=== PATIENT | female | born 1935 | race Caucasian/White ===

== ENCOUNTER 2017-01-09 09:58 | Outpatient (CLI) | payer MEDICARE | END 2017-01-09 23:59 | DX: I10 Essential (primary) hypertension (principal); Z79.899 Other long term (current) drug therapy; F32.9 Major depressive disorder, single episode, unspecified; R53.83 Other fatigue ==

== ENCOUNTER 2018-04-27 08:00 | Outpatient (CLI) | payer MEDICARE ==
[2018-04-27 12:08] LABS: BASOPHILS % (AUTO) 0.6 %; EOSINOPHILS # (AUTO) 0.1 10^3/uL (0.0-0.7); EOSINOPHILS % (AUTO) 1.1 %; HGB - HEMOGLOBIN 13.6 g/dL (12.0-16.0); LYMPHOCYTES # (AUTO) 2.6 10^3/uL (1.5-3.5); LYMPHOCYTES % (AUTO) 31.2 %; MEAN CORPUSCULAR HEMOGLOBIN 30.4 pg (27.0-31.0); MEAN CORPUSCULAR HGB CONC 33.5 g/dL (32.0-36.0); MEAN CORPUSCULAR VOLUME 90.9 fL (81.0-99.0); MEAN PLATELET VOLUME 7.7 fL (7.9-10.8); MONOCYTES # (AUTO) 0.4 10^3/uL (0.0-1.0); MONOCYTES % (AUTO) 5.3 %; NEUTROPHILS # (AUTO) 5.1 10^3/uL (1.5-6.6); NEUTROPHILS % (AUTO) 61.8 %; PLT - PLATELET COUNT 297 10^3/uL (130-450); RED BLOOD COUNT 4.46 10^6/uL (4.20-5.40); RED CELL DISTRIBUTION WIDTH 13.3 % (12.0-15.0); WHITE BLOOD COUNT 8.2 x10^3/uL (4.8-10.8)
[2018-04-27 12:30] LABS: ALBUMIN 4.2 g/dL (3.2-5.5); ALBUMIN/GLOBULIN RATIO 1.5 (1.0-2.2); ALKALINE PHOSPHATASE 78 IU/L (42-121); ALT ALANINE AMINOTRANSFERASE 20 IU/L (10-60); AST ASPARTATE AMINOTRANSFERASE 17 IU/L (10-42); BILIRUBIN,TOTAL 0.7 mg/dL (0.2-1.0); BUN - BLOOD UREA NITROGEN 20 mg/dL (6-20); CALCIUM 9.3 mg/dL (8.5-10.3); CARBON DIOXIDE - CO2 29 mmol/L (21-32); CHLORIDE 102 mmol/L (101-111); CHOL/HDL RATIO 5.4 (<4.4); CHOLESTEROL 182 mg/dL; GFR - MDRD 53 (>89); GLUCOSE 102 mg/dL (70-100); HDL CHOLESTEROL 34 mg/dL; LDL CHOLESTEROL,CALCULATED 96 mg/dL; LDL/HDL RATIO 2.8 (<4.4); SODIUM 138 mmol/L (135-145); VLDL CHOLESTEROL 52 mg/dL
== END 2018-04-27 08:01 | disposition home or self-care (01) ==
LOC: LAB.N 08:00
PROVIDERS: ATTEND Physician Assistant Medical
DX: E55.9 Vitamin D deficiency, unspecified (principal); I10 Essential (primary) hypertension; F32.9 Major depressive disorder, single episode, unspecified; Z79.899 Other long term (current) drug therapy; Z13.89 Encounter for screening for other disorder; H49.11 Fourth [trochlear] nerve palsy, right eye; H49.12 Fourth [trochlear] nerve palsy, left eye
CPT/HCPCS: 36415; 80053; 80061; 82306; 83721; 84443; 85025; 85651; 86140

== ENCOUNTER 2018-04-27 15:52 | Outpatient (CLI) | payer MEDICARE ==
[2018-04-27 16:09] LABS: BASOPHILS # (AUTO) 0.1 10^3/uL (0.0-0.1); BASOPHILS % (AUTO) 0.8 %; EOSINOPHILS # (AUTO) 0.1 10^3/uL (0.0-0.7); EOSINOPHILS % (AUTO) 0.7 %; HGB - HEMOGLOBIN 13.5 g/dL (12.0-16.0); LYMPHOCYTES # (AUTO) 3.1 10^3/uL (1.5-3.5); MEAN CORPUSCULAR HEMOGLOBIN 30.1 pg (27.0-31.0); MEAN CORPUSCULAR HGB CONC 33.1 g/dL (32.0-36.0); MEAN CORPUSCULAR VOLUME 90.9 fL (81.0-99.0); MEAN PLATELET VOLUME 7.1 fL (7.9-10.8); MONOCYTES # (AUTO) 0.8 10^3/uL (0.0-1.0); MONOCYTES % (AUTO) 5.6 %; NEUTROPHILS # (AUTO) 9.5 10^3/uL (1.5-6.6); NEUTROPHILS % (AUTO) 69.9 %; PLT - PLATELET COUNT 332 10^3/uL (130-450); RED BLOOD COUNT 4.48 10^6/uL (4.20-5.40); WHITE BLOOD COUNT 13.5 x10^3/uL (4.8-10.8)
== END 2018-04-27 15:53 | disposition home or self-care (01) ==
LOC: LAB 15:52
PROVIDERS: ATTEND Ophthalmology
DX: H49.11 Fourth [trochlear] nerve palsy, right eye (principal); H49.12 Fourth [trochlear] nerve palsy, left eye
CPT/HCPCS: 85025; 85651; 86140

== ENCOUNTER 2018-05-10 10:02 | Outpatient (CLI) | payer MEDICARE ==
--- NOTE | 2018-05-10 11:48 | DEXA Report ---
Procedure Date: 05/10/2018 Accession Number: [id number] / [id number] Procedure: DEX - Dexa Spine and/or Hip CPT Code: FULL RESULT: EXAM: Dexa Spine and/or Hip DATE: 05/10/2018 10:54 AM CLINICAL HISTORY: POSTMENOPAUSAL TECHNIQUE: Dual energy x-ray absorptiometry (DXA) was performed on a AIRSIS System. Regions measured are the AP Spine, femoral neck, and if needed forearm. COMPARISON: None. In accordance with the International Society for Clinical Densitometry (ISCD) guidelines, data from previous exams may be reanalyzed using current recommendations and techniques. This is done to allow a more accurate basis for comparison with the current study. FINDINGS: The data for the lumbar spine is as follows: BMD (g/cm/cm) T-SCORE Z-SCORE REGION L1 1.069 -0.5 0.9 L2 1.180 -0.2 1.3 L3 1.142 -0.5 1.0 L4 1.173 -0.2 1.2 TOTAL 1.141 -0.3 1.1 NOTE: All evaluable vertebrae are used for classification The data for the hip is as follows: BMD (g/cm/cm) T-SCORE Z-SCORE REGION Neck 0.871 -1.2 0.8 TOTAL 0.961 -0.4 1.4 NOTE: The femoral neck or total proximal femur, whichever is lowest, is used for classification. IMPRESSION: THE WHO CLASSIFICATION BASED ON THE INTERNATIONAL REFERENCE STANDARD IS OSTEOPENIA. THE FRACTURE RISK IS INCREASED. RECOMMENDATION: Patients with diagnosis of osteoporosis or osteopenia should have regular bone mineral density assessment. For those eligible for Medicare, routine testing is allowed once every 2 years. Testing frequency can be increased for patients who have rapidly progressing disease or for those who are receiving medical therapy to restore bone mass. COMMENT: World Health Organization (WHO) definitions for osteoporosis and osteopenia: NORMAL BMD: T-score at -1.0 or higher, fracture risk is low OSTEOPENIA BMD: T-score between -1.0 and -2.5, fracture risk is increased. OSTEOPOROSIS BMD: T-score at -2.5 or lower, fracture risk is high. National Osteoporosis Foundation recommends: 1. Obtain adequate dietary calcium (at least 1200 mg per day) and vitamin D (400-800 international units per day). 2. Participate, as appropriate, in regular weightbearing and muscle-strengthening exercise. 3. Avoid tobacco use and reduce alcohol and caffeine intake. 4. For more detailed information see the website at www.NOF.org.
== END 2018-05-10 10:03 | disposition home or self-care (01) ==
LOC: DI 10:02
PROVIDERS: ATTEND Physician Assistant Medical
DX: M85.88 Other specified disorders of bone density and structure, other site (principal)
CPT/HCPCS: 77080

== ENCOUNTER 2020-10-02 10:55 | Outpatient (CLI) | payer MEDICARE | END 2020-10-03 10:56 | disposition short-term general hospital (02) | LOC: EMS 10:55 | PROVIDERS: ATTEND Surgery | DX: M25.552 Pain in left hip (principal); W18.39XA Other fall on same level, initial encounter; Y92.003 Bedroom of unspecified non-institutional (private) residence as the place of occurrence of the external cause | CPT/HCPCS: A0425; A0427 ==

== ENCOUNTER 2020-11-25 13:50 | Outpatient (CLI) | payer MEDICARE | END 2020-11-25 13:51 | disposition home or self-care (01) | LOC: LAB.N 13:50 | PROVIDERS: ATTEND Surgery | DX: C10.9 Malignant neoplasm of oropharynx, unspecified (principal) | CPT/HCPCS: 36415; 82378 ==

== ENCOUNTER 2021-01-12 11:49 | Emergency (ER) | payer MEDICARE ==
[2021-01-12] MEDS ORDERED: TETANUS/DIPHTHERIA/PERTUSSIS 0.5 ML SYRINGE IM ONE (12:29)
[2021-01-12] MEDS ORDERED: LIDOCAINE-EPINEPH-TETRACAINE 3 ML SYRINGE TOP STA (12:29)
--- NOTE | 2021-01-12 12:46 | ED Physician Documentation ---
History of Present Illness - Stated complaint Stated Complaint: HEAD INJURY - Chief complaint Chief Complaint: Laceration - History obtained from History obtained from: Patient - History of Present Illness Timing: Today Pain level max: 3 Pain level now: 2 - Additonal information Additional information: Patient is a 85-year-old female who presents to the emergency department after a trip and fall today. She fell backwards striking her head on a small iron table. Laceration to the back of the head. No loss of consciousness. No vomiting. Unknown last tetanus. Nothing makes it better or worse. Patient states she is not on anticoagulation. no neck or back pain. 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 : None HEENT: None Psych: None Musculoskeletal: None Derm: None - Past Surgical History Past Surgical History: No - Allergies Allergies/Adverse Reactions: Allergies Allergy/AdvReac Type Severity Reaction Status Date / Time aspirin Allergy Hives Verified 01/12/21 11:54 NSAIDS (Non-Steroidal Allergy Hives Verified 01/12/21 11:54 Anti-Inflamma Sulfa (Sulfonamide Allergy Unknown Verified 01/12/21 11:54 Antibiotics) - Social History Does the pt smoke?: No Smoking Status: Never smoker - POLST Patient has POLST: No PD ED PE NORMAL - Vitals Vital signs reviewed: Yes - General General: Alert and oriented X 3, No acute distress, Well developed/nourished - HEENT HEENT: PERRL, Moist mucous membranes, Other (2cm laceration to the L occiput, no scalp hematoma. No palpable skull fracture) - Neck Neck: Supple, no meningeal sign, Other (mild upper c-spine TTP) - Cardiac Cardiac: RRR, Strong equal pulses - Respiratory Respiratory: No respiratory distress, Clear bilaterally - Abdomen Abdomen: Soft, Non tender, Non distended - Back Back: No spinal TTP - Derm Derm: Warm and dry - Extremities Extremities: Normal ROM s pain - Neuro Neuro: Alert and oriented X 3, supervisor wood room 2-12 intact, No motor deficit, No sensory deficit - Psych Psych: Normal mood, Normal affect Results - Vitals Vitals: Vital Signs - 24 hr 01/12/21 01/12/21 11:54 13:49 Temperature 37.2 C 36.9 C Heart Rate 80 72 Respiratory 16 18 Rate Blood Pressure 145/70 H 134/57 H O2 Saturation 100 98 Oxygen O2 Source Room air - Rads (name of study) head CT Radiology: Prelim report reviewed, EMP read contemporaneously, See rad report cervical spine CT Radiology: Prelim report reviewed, EMP read contemporaneously, See rad report Procedures - Laceration (location) occiput Length in cm: 3 Wound type: Linear Neurovascular status: Sensory intact, Motor intact, Vascular intact Wound preparation: Irrigated copiously NS Skin layer closure: [place] Other: Patient tolerated well, No complications, Neurovascular intact, Dressing applied, Tetanus booster given PD MEDICAL DECISION MAKING - ED course Complexity details: reviewed results, re-evaluated patient, considered d ifferential, d/w patient ED course: No acute findings on head CT or cervical spine CT. [place] were used to repair the wound. Tolerated well. Tdap given. Warnings of infection and instructions on wound care given at bedside. Also counseled on how to minimize scarring. Patient counseled regarding signs and symptoms for which I believe and urgent re-evaluation would be necessary. Patient with good understanding of and agreement to plan and is comfortable going home at this time This document was made in part using voice recognition software. While efforts are made to proofread this document, sound alike and grammatical errors may occur. IMPRESSION: No acute intracranial process. Chronic right frontal encephalomalacia IMPRESSION: No fracture Cervical spondylosis and facet arthropathy most pronounced at C3-C4 and C5-C6. Departure - Departure Disposition: 01 Home, Self Care Clinical Impression: Occipital scalp laceration Qualifiers: Encounter type: initial encounter Qualified Code(s): S01.01XA - Laceration without foreign body of scalp, initial encounter Closed head injury Qualifiers: Encounter type: initial encounter Qualified Code(s): S09.90XA - Unspecified injury of head, initial encounter Condition: Good Instructions: ED Head Injury Closed, ED Laceration Scalp Stitch Or Stap Follow-Up: your,doctor in 10-14 days for staple removal [Other] Comments: Follow-up with your doctor in 10 to 14 days for staple removal. Return if you worsen. Return if you notice redness, swelling or drainage from the wound. Your head CT and cervical spine CT did not show any acute abnormalities today. Discharge Date/Time: 01/12/21 14:12
[2021-01-12] MEDS ORDERED: BACITRACIN ZINC OINT 1 PACKET TOP STA (13:16)
--- NOTE | 2021-01-12 13:36 | CT Report ---
PROCEDURE: HEAD WO INDICATIONS: fall, occipital head injury TECHNIQUE: Noncontrast 4.5 mm thick angled axial sections acquired from the foramen magnum to the vertex. For r adiation dose reduction, the following was used: automated exposure control, adjustment of mA and/or kV according to patient size. COMPARISON: None. FINDINGS: Image quality: Excellent. CSF spaces: Basal cisterns are patent. No extra-axial fluid collections. Ventricles are normal in size and shape. Brain: No midline shift. There is chronic right frontal encephalomalacia No intracranial masses or h emorrhage. Arthur-white matter interface is normal. Skull and face: Calvarium and visualized facial bones are intact, without suspicious lesions. Sinuses: Visualized sinuses and mastoids are clear except for subcentimeter mucous retention polyp o r cyst involving the posterior left ethmoid air cells. IMPRESSION: No acute intracranial process. Chronic right frontal encephalomalacia Reviewed by: Emile Wise MD on 01/12/2021 1:35 PM PST Approved by: Emile Wise MD on 01/12/2021 1:35 PM PST Station ID: [id number]
--- NOTE | 2021-01-12 13:41 | CT Report ---
PROCEDURE: CERVICAL SPINE WO INDICATIONS: fall, flexion injury TECHNIQUE: Noncontrast 3 mm thick sections acquired from the skull base to the T4 level. Sagittal and coronal r eformats were then constructed. For radiation dose reduction, the following was used: automated exp osure control, adjustment of mA and/or kV according to patient size. COMPARISON: None. FINDINGS: Image quality: Excellent. Bones: No fractures or dislocations. Visualized superior ribs are intact. Scattered multilevel end plate spurring and diffuse facet arthropathy.Straightening of the normal lordotic curvature. Severe narrowing of the C3-C4 and C5-C6 disc spaces. Soft tissues: Prevertebral soft tissues are normal in thickness. No paravertebral hematomas. No ap ical pneumothoraces. Scattered carotid atherosclerotic calcified plaque. IMPRESSION: No fracture Cervical spondylosis and facet arthropathy most pronounced at C3-C4 and C5-C6. Reviewed by: Emile Wise MD on 01/12/2021 1:40 PM PST Approved by: Emile Wise MD on 01/12/2021 1:40 PM PST Station ID: [id number]
[2021-01-12 13:49] VITALS: BP 134/57
== END 2021-01-12 14:12 | disposition home or self-care (01) ==
LOC: ED 11:49
DX: S01.91XA Laceration without foreign body of unspecified part of head, initial encounter (principal); S01.01XA Laceration without foreign body of scalp, initial encounter; W01.190A Fall on same level from slipping, tripping and stumbling with subsequent striking against furniture, initial encounter; I10 Essential (primary) hypertension; I73.9 Peripheral vascular disease, unspecified; Z23 Encounter for immunization
CPT/HCPCS: 12002; 90471; 99282; 99284

== ENCOUNTER 2021-06-23 11:30 | Outpatient (CLI) | payer MEDICARE ==
[2021-06-23 17:41] LABS: BASOPHILS # (AUTO) 0.1 10^3/uL (0.0-0.1); BASOPHILS % (AUTO) 0.6 %; EOSINOPHILS # (AUTO) 0.1 10^3/uL (0.0-0.7); EOSINOPHILS % (AUTO) 0.7 %; HCT - HEMATOCRIT 35.8 % (37.0-47.0); HGB - HEMOGLOBIN 10.7 g/dL (12.0-16.0); LYMPHOCYTES # (AUTO) 2.5 10^3/uL (1.5-3.5); LYMPHOCYTES % (AUTO) 15.5 %; MEAN CORPUSCULAR HEMOGLOBIN 27.5 pg (27.0-31.0); MEAN CORPUSCULAR HGB CONC 29.9 g/dL (32.0-36.0); MEAN PLATELET VOLUME 8.9 fL (7.9-10.8); MONOCYTES # (AUTO) 0.8 10^3/uL (0.0-1.0); MONOCYTES % (AUTO) 5.2 %; NEUTROPHILS # (AUTO) 12.5 10^3/uL (1.5-6.6); NEUTROPHILS % (AUTO) 77.6 %; PLT - PLATELET COUNT 534 10^3/uL (130-450); RED BLOOD COUNT 3.89 10^6/uL (4.20-5.40); RED CELL DISTRIBUTION WIDTH 13.6 % (12.0-15.0); WHITE BLOOD COUNT 16.1 x10^3/uL (4.8-10.8)
[2021-06-23 17:52] LABS: ALBUMIN 3.7 g/dL (3.2-5.5); ALBUMIN/GLOBULIN RATIO 1.1 (1.0-2.2); BILIRUBIN,TOTAL 0.6 mg/dL (0.2-1.0); CALCIUM 9.3 mg/dL (8.5-10.3); POTASSIUM 3.9 mmol/L (3.5-5.0); TOTAL PROTEIN 7.1 g/dL (6.7-8.2)
== END 2021-06-23 11:31 | disposition home or self-care (01) ==
LOC: LAB.N 11:30
PROVIDERS: ATTEND Internal Medicine
DX: I10 Essential (primary) hypertension (principal)
CPT/HCPCS: 36415; 80053; 85025

== ENCOUNTER 2021-06-29 15:34 | Outpatient (CLI) | payer MEDICARE ==
[2021-06-29 18:18] LABS: BASOPHILS # (AUTO) 0.1 10^3/uL (0.0-0.1); BASOPHILS % (AUTO) 0.7 %; EOSINOPHILS # (AUTO) 0.3 10^3/uL (0.0-0.7); EOSINOPHILS % (AUTO) 1.9 %; HGB - HEMOGLOBIN 10.1 g/dL (12.0-16.0); LYMPHOCYTES # (AUTO) 3.6 10^3/uL (1.5-3.5); LYMPHOCYTES % (AUTO) 26.6 %; MEAN CORPUSCULAR HEMOGLOBIN 26.8 pg (27.0-31.0); MEAN CORPUSCULAR HGB CONC 29.7 g/dL (32.0-36.0); MEAN CORPUSCULAR VOLUME 90.2 fL (81.0-99.0); MEAN PLATELET VOLUME 9.1 fL (7.9-10.8); MONOCYTES # (AUTO) 0.9 10^3/uL (0.0-1.0); MONOCYTES % (AUTO) 6.6 %; NEUTROPHILS # (AUTO) 8.8 10^3/uL (1.5-6.6); NEUTROPHILS % (AUTO) 63.8 %; PLT - PLATELET COUNT 554 10^3/uL (130-450); RED BLOOD COUNT 3.77 10^6/uL (4.20-5.40); RED CELL DISTRIBUTION WIDTH 13.6 % (12.0-15.0); WHITE BLOOD COUNT 13.7 x10^3/uL (4.8-10.8)
== END 2021-06-29 15:35 | disposition home or self-care (01) ==
LOC: LAB.N 15:34
PROVIDERS: ATTEND Internal Medicine
DX: C18.2 Malignant neoplasm of ascending colon (principal); D64.9 Anemia, unspecified
CPT/HCPCS: 36415; 82378; 85025

== ENCOUNTER 2021-07-07 13:52 | Outpatient (CLI) | payer MEDICARE ==
[2021-07-07 17:41] LABS: BASOPHILS # (AUTO) 0.1 10^3/uL (0.0-0.1); BASOPHILS % (AUTO) 0.4 %; EOSINOPHILS % (AUTO) 0.1 %; HCT - HEMATOCRIT 33.7 % (37.0-47.0); HGB - HEMOGLOBIN 10.1 g/dL (12.0-16.0); LYMPHOCYTES # (AUTO) 4.4 10^3/uL (1.5-3.5); MEAN CORPUSCULAR HEMOGLOBIN 26.8 pg (27.0-31.0); MEAN CORPUSCULAR VOLUME 89.4 fL (81.0-99.0); MONOCYTES # (AUTO) 1.1 10^3/uL (0.0-1.0); MONOCYTES % (AUTO) 4.9 %; NEUTROPHILS # (AUTO) 17.4 10^3/uL (1.5-6.6); NEUTROPHILS % (AUTO) 75.3 %; PLT - PLATELET COUNT 627 10^3/uL (130-450); RED BLOOD COUNT 3.77 10^6/uL (4.20-5.40); WHITE BLOOD COUNT 23.1 x10^3/uL (4.8-10.8)
[2021-07-07 17:46] LABS: SLIDE REVIEW? Indicated
[2021-07-07 18:06] LABS: % IRON SATURATION 5 % (20-50); IRON 16 ug/dL (28-170); TOTAL IRON BINDING CAPACITY 305 ug/dL (250-450); TRANSFERRIN 218 mg/dL (192-382)
[2021-07-07 18:37] LABS: FERRITIN 44.2 ng/mL (11.0-306.8)
[2021-07-07 18:42] LABS: DIFFERENTIAL COMMENT MANUAL=AUTO DIFF; PLATELET ESTIMATE, MANUAL INCREASED (>450,000) (NORMAL); PLATELET MORPHOLOGY NORMAL APPEARANCE (NORMAL); RBC MORPHOLOGY (MULTIPLE) NORMAL APPEARANCE (NORMAL)
== END 2021-07-07 13:53 | disposition home or self-care (01) ==
LOC: LAB.N 13:52
PROVIDERS: ATTEND Internal Medicine
DX: D64.9 Anemia, unspecified (principal)
CPT/HCPCS: 36415; 82607; 82728; 83540; 84466; 85025

== ENCOUNTER 2021-07-21 10:38 | Outpatient (CLI) | payer MEDICARE ==
[2021-07-21 11:51] LABS: BASOPHILS # (AUTO) 0.1 10^3/uL (0.0-0.1); BASOPHILS % (AUTO) 0.7 %; EOSINOPHILS # (AUTO) 0.3 10^3/uL (0.0-0.7); EOSINOPHILS % (AUTO) 1.9 %; HCT - HEMATOCRIT 34.1 % (37.0-47.0); HGB - HEMOGLOBIN 10.2 g/dL (12.0-16.0); LYMPHOCYTES # (AUTO) 2.8 10^3/uL (1.5-3.5); LYMPHOCYTES % (AUTO) 21.4 %; MEAN CORPUSCULAR HEMOGLOBIN 26.8 pg (27.0-31.0); MEAN CORPUSCULAR HGB CONC 29.9 g/dL (32.0-36.0); MEAN CORPUSCULAR VOLUME 89.7 fL (81.0-99.0); MEAN PLATELET VOLUME 8.7 fL (7.9-10.8); MONOCYTES # (AUTO) 0.8 10^3/uL (0.0-1.0); MONOCYTES % (AUTO) 6.1 %; NEUTROPHILS # (AUTO) 9.1 10^3/uL (1.5-6.6); NEUTROPHILS % (AUTO) 69.7 %; PLT - PLATELET COUNT 521 10^3/uL (130-450); RED CELL DISTRIBUTION WIDTH 14.5 % (12.0-15.0)
[2021-07-21 20:56] LABS: BILIRUBIN,URINE NEGATIVE (NEGATIVE); GLUCOSE, URINE (UA) NEGATIVE (NEGATIVE); KETONES,URINE (UA) NEGATIVE (NEGATIVE); LEUKOCYTE ESTERASE, URINE NEGATIVE (NEGATIVE); NITRITE,URINE NEGATIVE (NEGATIVE); OCCULT BLOOD,URINE NEGATIVE (NEGATIVE); PROTEIN,URINE NEGATIVE (NEGATIVE); UROBILINOGEN,URINE 0.2 (NORMAL) E.U./dL (NORMAL)
[2021-07-21 21:01] LABS: CLARITY,URINE CLEAR (CLEAR)
[2021-07-21 21:03] LABS: BACTERIA,URINE Rare /HPF (None Seen); MUCUS,URINE Few Strands; RBC,URINE 0-5 /HPF (0-5); SQUAMOUS EPITHELIAL CELL,UR MOD Squamous (<= Few); WBC,URINE 0-3 /HPF (0-5)
== END 2021-07-21 10:39 | disposition home or self-care (01) ==
LOC: LAB.N 10:38
PROVIDERS: ATTEND Internal Medicine
DX: N30.00 Acute cystitis without hematuria (principal); D72.829 Elevated white blood cell count, unspecified
CPT/HCPCS: 36415; 81001; 85025; 87086

== ENCOUNTER 2021-08-04 14:00 | Outpatient (CLI) | payer MEDICARE ==
--- NOTE | 2021-08-04 21:27 | CONSULTATION NOTE ---
Palliative Care Consultation - Referral Referring Provider: Danyelle BRAND for Dr. Cordova Time of Visit: [id number] Referral setting: Home Referral Reason: Failure to Thrive/Goals of Care - Information Sources Records reviewed: Previous records reviewed History/Review of Systems obtained from: Patient, Family ( Ronald) Exam limitations: Clinical condition (patient difficulty with concentration) - History of Present Illness Brief History of Present Illness: This is an 86-year-old woman who has had a complicated history over the last several months, compounded by ability to access healthcare related to the pandemic as well as changing of primary care provider and surgeon moving. Patient had presented last summer with significant weight loss. Her original weight was 170, she had difficulty getting into see a provider secondary to Covid. She went on to have an acute work-up, and was found to have colon cancer. 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 This was in July 2020, reports and it does sound probable that she had a TIA, and most likely frequent TIAs given her decline in functional status. She was having increased balance issues, worsening right- sided lower extremity weakness, and mild cognitive changes. She did have a fall for which she sustained a laceration and was seen in the ED, her CT scan showed chronic right frontal encephalomalacia. Unfortunately she went on to have a fall in September/2020 and sustained hip fracture with a repair. During this time she was followed by [facility], but patient continued to decline functionally with no improvement. Her mobility is impacted both by weakness, muscle mass loss, balance issues, and is mostly bedbound and sedentary in her recliner. Original PCP left, and follow-up had recommended no further work-up in the context of her age and underlying health. Patient has had no further staging, they do recall a request for patient to get a PET scan and follow up with oncology. Unknown clear from their current understanding, if this was despite choice, is most likely would not accept chemotherapy or essentially fill through the cracks. In the meantime patient is continue to deteriorate, was experiencing increasing abdominal pain and discomfort in May. She did have a CEA, and since this was negative was not thought to be colon cancer. She was developing worsening abdominal pain, patient at baseline has significant incontinence urinary for about 2 to 3 years. She has absolutely no control with this, she had now developed bowel incontinence, having loose stools 1-3 times a day. She was seen in the office 07/08, and sent on over to [facility] with elevated white blood cell count of 23,000. She was having more acute pain at this time, and a work-up found in the CT scan of the abdomen pelvis right lower quadrant collection with a thick wall measuring 5.4 cm increased in size compared to 03/23/2021. There is concern for possible walled off abscess or enlarging partial necrotic mass or metastasis. She also had a dilated loop of bowel in the right pelvis near this collection and concern for early or partial short segment small bowel obstruction. It did show enlarged mesenteric lymph nodes in the right lower quadrant, and was admitted. She was found to have And acute UTI on admission. She did receive Gastrografin challenge, which revealed no evidence of obstruction. With this study was felt the mass/abscess that was communicating with the bowel likely represented a pouch that had formed in the and anastomosis of the bowel from her surgery 1 year ago. Unclear what was expected in follow-up, as has no further plans other than follow-up with PCP. Patient is continued to deteriorate, she has had decreased intake. Has continued with weight loss. And continued with loose incontinent stools, aggravated by eating. This is caused significant distress for patient to she is feeling as a burden, as well as increase caregiver fatigue for her . With her balance issues, she remains mostly bedbound or in the chair all day. She is eating very little. Her weight on admission today was 118. When she saw the physician on 07/08 it was 127. Patient is quite thin and cachectic, pale in color. Her abdomen is soft with no specific abdominal pain on palpation, no mass felt. Stool is quite foul-smelling, and liquid but no watery. They have not used any medications to try and slow her down. She does have low-grade consistent nausea that interferes with eating, as well as early satiety. She also presents with significant stomach discomfort, recently was decreased from her omeprazole 40 mg to 20, and has not been consistent in taking medications. She reports acetaminophen does help with the pain, and has not needed anything stronger. Both and patient recognize patient's decline, are somewhat unclear on their goals. They have been quite frustrated with her access to care and are feeling overwhelmed. Medical/Surgical History - Past Medical History Cardiovascular: reports: Hypertension, Peripheral Vascular Disease Respiratory: reports: None Neuro: TIA, Other (right sided LE weakness; balance problems) Endocrine/Autoimmune: reports: None GI: reports: GERD, Chronic diarrhea RESOLUTION AGENT: reports: None : reports: Incontinence HEENT: reports: Chronic hearing loss Psych: reports: Depression Musculoskeletal: reports: Osteoarthritis, Fatigue Derm: reports: None MRSA Hx?: No - Past Surgical History Ortho: reports: Hip replacement (repair) - Substance History Use: Uses substance without health or social issues: NONE Social History - Living Situation Living arrangement: At home Living Situation: With spouse/s.o. Support System: June and Ronald have been since 1990. She has 1 son who lives nearby. 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 Ronald presents with severe caregiver fatigue and distress. They do have 1 hour 3 times a week for bathing and respite, patient has been quite resistant to increased support. feels like he could use more, particularly in the context of patient's ongoing incontinence and care needs. Ronald is open to having the medical coder come and go over resources as well as work with patient to accept more support. Family History - Family History Family History: Mother: (liver cancer), Cancer (GI type at age 84 in [place]), Father: , Cancer Medications/Allergies - Medications Home Medications: Ambulatory Orders Medication Instructions Recorded Confirmed Escitalopram [Lexapro] 20 mg PO DAILY 08/04/21 08/04/21 Acetaminophen [Tylenol] 650 mg PO BID MDD 3000 08/05/21 08/05/21 Ipratropium Kiester 1 - 2 sprays SARAH BID 08/05/21 08/05/21 Losartan Potassium 25 mg PO DAILY 08/05/21 08/05/21 Omeprazole 40 mg PO DAILY 08/05/21 08/05/21 Ondansetron [Zuplenz] 4 mg PO Q6HR PRN 08/05/21 08/05/21 dexAMETHasone [Decadron] 2 mg PO DAILY MDD 2 weeks 08/05/21 08/05/21 - Allergies Allergies/Adverse Reactions: Allergies Allergy/AdvReac Type Severity Reaction Status Date / Time aspirin Allergy Hives Verified 01/12/21 11:54 NSAIDS (Non-Steroidal Allergy Hives Verified 01/12/21 11:54 Anti-Inflamma Sulfa (Sulfonamide Allergy Unknown Verified 01/12/21 11:54 Antibiotics) Review of Systems - Constitutional Constitutional: reports: Fatigue (worsening;sleeping much of the time), Weakness, Poor appetite, Weight loss (baseline prior to colon cancer wt. loss 170; 07/08 127; today 118). denies: Fever - Eyes Eyes: reports: Vision loss - Ears, Nose & Throat Ears, Nose & Throat: reports: Hearing loss, Hearing aids (not wearing), Dry mouth - Cardiovascular Cardiovascular: reports: Exertional dyspnea, Decr. exercise tolerance - Respiratory Respiratory: reports: SOB with exertion. denies: SOB at rest - Gastrointestinal Gastrointestinal: reports: Abdominal pain, Diarrhea (2-4 times a day; triggered often by etaing), Nausea, Vomiting (intermittent every few days), Reflux/heartburn, Bloating, Poor appetite, Early satiety - Genitourinary Genitourinary: reports: Incontinence (no control for several years), Other ( reports chronically cloudy; only time clear after hospitalization). denies: Dysuria - Musculoskeletal Musculoskeletal: reports: Muscle pain, Back pain, Muscle aches, Stiffness, Limited range of motion (right LE), Muscle weakness, Transfer issues (uses grab bars) - Integumentary Integumentary: reports: Dryness, Hair changes (thinning) - Neurological Neurological: reports: General weakness, Memory problems, Abnormal gait, Incoordination, Other (balance issues) - Psychiatric Psychiatric: reports: Depression (worsening) - Hematologic/Lymphatic Hematologic/Lymph: reports: Anemia (10.2), Recurrent infections (recently treated with levaquin on discharge hospital) - All Other Systems All Other Systems: reports: Reviewed and negative Physical Exam - Vital Signs Temperature: 97.0 C Pulse Rate: 83 Respiratory Rate: 18 O2 Saturation: 94 (ra @ rest) Blood Pressure: 138/64 - Physical Exam General Appearance: positive: Mild distress, Cachetic Eyes Bilateral: positive: Normal inspection Neck: positive: Trachea midline Cardiovascular: positive: Regular rate & rhythm Respiratory: positive: No respiratory distress, Diminished in bases Abdomen: positive: Non-tender, Soft, Abnml bowel sounds (hyperactive), Other (patient inc of liquid brown stool without awareness during visit; foul smelling; will check if C. diff testing had been done). negative: Hepatomegaly, Mass, Distended Skin: positive: Pallor, Dryness Extremities: positive: Pedal edema Neurologic/Psychiatric: positive: Disoriented to time, Weakness, Depressed mood/affect, Flat affect Palliative Care - POLST Patient has POLST: No Pain: Pain worsening, Location (abdominal pain; controlled with APAP; flu ctuates), Severity (mod) Tiredness/Fatigue: Severe (7-10) Drowsiness/Sedation: Moderate (4-6) Nausea: Moderate (4-6), With vomiting (occasional) Anorexia: Severe (7-10), Weight loss Dyspnea: Mild (1-3) Depression: Severe (7-10) Anxiety: Moderate (4-6) Feelings of wellbeing/Perceived Quality of Life: Poor, Worsening Sleep: Variable sleep pattern (inc. of urine/stool wakes up) Performance Status: Patient spends most of her time in the recliner or in bed. She needs maximal assist for any kind of transfers secondary to her balance and weakness. They do have someone come in and help with bathing 3 times a week, but often needs showering secondary to incontinence of stool. They do have transfer grab bars, but patient requires significant amount of physical assist as well as cueing - Palliative Care Discussion: Both patient and her have felt somewhat adrift over this last year, complicated by Covid and access to care as well as losing primary care provider and surgeon. They have tried establish with Dr. Cordova, but do not have a relationship yet. Patient has been deteriorating, with no identified underlying etiology and recent hospitalization did not provide any guidance for further treatment plan. In review patient never finished her staging for her colon cancer, though most likely would not accept treatment and at this point would not be a candidate secondary to her failure to thrive symptoms. Both patient and recognize the seriousness of her illness, though seems somewhat ambivalent either to focus on comfort or to focus on further intervention. Short-term goals would be to control the diarrhea, is the distress and symptoms for patient, and provide further support. In separate conversation with , does feel like she is deteriorating pretty quickly, has been to the home to make arrangements. We will continue explore goals of care and consider hospice transition. Results - Lab Results Lab results reviewed: Yes Impression and Recommendations - Palliative Care Impression: This is an 86-year-old woman who presents with failure to thrive, with weight loss, recurrent diarrhea, poor intake, weakness, depression, and worsening fatigue. Patient's discharge assessment reports no evidence of abscess abscess or necrotic mass, and partial small bowel obstruction resolved the patient is continued to deteriorate despite resolution of UTI and transition home. Palliative care providing support to define goals of care, provide support for symptom management, and provide anticipatory guidance Recommendations/Counseling Done: 1. Diarrhea. This continues to be problematic, patient has not actually trialed any pharmacologic approach to managing. We will go ahead and order C. diffici le screen, just to rule out. Patient with low-grade and intermittent nausea, will initiate ondansetron 4 mg twice daily, with known side effect of constipation. Will add Imodium one 1/2 twice daily if does not slow it down. Will consider adding Benefiber, depending on outcome of testing. Goals remain somewhat ambivalent, may need follow-up regarding further testing and referral to surgeon for scoping. 2. GERD. Patient continues with abdominal pain and discomfort, per report recently had omeprazole decreased to 20 mg, will increase it to back to 40mg . Patient has been taking at bedtime, will have her trial in a.m. prior to eating. 3. Anorexia. Patient with early satiety, anorexia, resulting in significant weight loss. This is multifactorial. Will trial short course of dexamethasone for appetite stimulant 2 mg in a.m. with food, to assist both with appetite, nausea, and fatigue. Patient instructed to take with food in a.m., will trial for 2 weeks. 4. Nausea with intermittent vomiting. Unknown etiology, will schedule her ondansetron twice daily, with instructions to use as needed up to 4 times a day. 5. Weight loss. Patient has had significant weight loss, does present with malnutrition and cachexia. Patient with early satiety, taste changes, using Ensure just once a day. Instructed to increase to twice daily, counseling provided regarding adding protein, pasta, rice, and continued to focus on hydration as well. 6. History of colon cancer. In review of patient's history, patient did not complete staging, nor any further follow-up with surgeon secondary to leaving the area. Patient is quite frail, at this point goals remain somewhat ambivalent. Patient's performance status, and failure to thrive at this point would negate further work-up or options for treatment. We will continue to explore if patient improves. 7. Caregiver fatigue. Patient unable to care for herself, worried about being a burden, overwhelmed and recognizing seriousness of condition. Patient only allowing limited assistance, discussed with concerns regarding needing increased respite, reports financially would be able to support it has been patient's resistance. Open to having SKIP LOADER, and discuss resources as well as counseling to further support defining goals of care. 8. Abdominal pain. Patient at this point in time noted multifactorial in the context of diarrhea, GERD, nausea, currently controlled with acetaminophen. We will continue to monitor as working on addressing symptoms and r/o C diff. 9. Advanced care planning. Patient is somewhat ambivalent regarding goals, discussed further aggressive work-up, given patient's rapid decline and seriousness of her current situation. After much discussion, goals at this point are to focus on addressing quality of life issues, symptoms, and continue to explore which direction patient and want to go, looking at work-up versus transitioning to comfort focused care only. They are quite overwhelmed where they currently are, will continue to build rapport, address advance care planning documents and anticipatory guidance. 90 minutes with greater than 50% of this done in counseling regarding goals of care, symptom management, anticipatory guidance, and coordination of care. Addendum 08/05. Dropped off lab slip and stool specimen cup to collect sample for C. difficile, will drop off at [facility]. Reviewed needed to be liquid in nature,
== END 2021-08-04 14:01 | disposition home or self-care (01) ==
LOC: PC 14:00
PROVIDERS: ATTEND Nurse Practitioner Adult Health
DX: Z51.5 Encounter for palliative care (principal); R19.7 Diarrhea, unspecified; K21.9 Gastro-esophageal reflux disease without esophagitis; R63.0 Anorexia; R11.2 Nausea with vomiting, unspecified; R63.4 Abnormal weight loss; Z85.038 Personal history of other malignant neoplasm of large intestine; R10.9 Unspecified abdominal pain
CPT/HCPCS: 99345

== ENCOUNTER 2021-08-11 08:00 | Outpatient (CLI) | payer MEDICARE | END 2021-08-11 23:59 | disposition home or self-care (01) | LOC: LAB.R 08:00 | PROVIDERS: ATTEND Nurse Practitioner Adult Health | DX: R19.7 Diarrhea, unspecified (principal) | CPT/HCPCS: 81599; 87324; 87449 ==

== ENCOUNTER 2021-08-12 13:00 | Outpatient (CLI) | payer MEDICARE ==
--- NOTE | 2021-08-12 16:04 | CONSULTATION NOTE ---
Palliative Care Follow Up - Referral Referring Provider: Danyelle BRAND Time of Visit: [id number] Referral setting: Home Referral Reason: Failure to Thrive - Information Sources Records reviewed: Previous records reviewed History/Review of Systems obtained from: Patient, Family ( Ronald; SANDY Powers) Exam limitations: Clinical condition (mild cognitive deficits) - History of Present Illness Update Brief HPI Update: This is an 86-year-old woman who has had a complicated history over the last several months, had presented last summer with significant weight loss original weight was 170, she had difficulty getting to see a provider secondary to Covid. She would not have acute work-up was found to have colon cancer. She underwent a laparoscopic right and transverse hemicolectomy with primary anastomosis for synchronous colon cancer cecum and hepatic flexure. This was July 2020, she also had a TIA, and most likely has been having frequent TIAs given her functional decline in status with increased balance issues, worsening right sided lower extremity weakness, and mild cognitive changes. She did have a laceration for which she sustained a trip to the ED and CT scan showed chronic right frontal encephalomalacia. Fortunately layered upon this she had a fall in September 2020 sustained a hip fracture with repair, was followed by [facility]. Patient had though has continued decline functionally with no improvement, mobility is impacted by weakness, muscle loss, balance issues and is mostly bedbound and sedentary in a recliner. Original PCP had left clinic follow-up recommended no further work-up in the context of her age and underlying health issues, so she has received no further staging. In the meantime she is continued to deteriorate. With increasing abdominal pain and discomfort since May. Patient has had significant urinary incontinence for 2 to 3 years, now she is having significant bowel incontinence having loose stools 1-3 times a day. She was recently in the hospital at [facility] with an elevated white count of 23,000, was having more acute pain and found on CT of the abdomen to have a thick wall measuring 5.4 cm compared to 03/23/2021. There was concern of an abscess or mass, she did have a early or partial bowel obstruction which resolved. She was also found to have an acute UTI. She did have a Gastrografin challenge which revealed no evidence of obstruction and with the study was felt to have a mass/abscess that was communicating with bowel likely representing a pouch that had formed in the anastomosis of the bowel from her surgery 1 year ago. She does not have any follow-up planned with this. We did do a C. difficile just to rule out, this came back negative today. Patient remains ambiguous about her goals, she has continued to deteriorate, with decreased intake, weight loss, and continued loose incontinent stools does appear to be aggravated by eating. She has had improvement with her nausea with scheduled ondansetron, has not impacted the number of her stools, and she is having nocturnal stooling.She is quite frail, her pain is controlled with acetaminophen, we have been scheduling it twice a day with some improvement. Her pain is mostly in her right lower quadrant, and reproducible to palpation, she reports mostly when she has straining that she notices this. She has actually improved as far as her appetite, and a little bit improvement of wanting to eat though has not really increased her intake significantly. I had started her on dexamethasone 2 mg last week. Past Medical History: Pretension, peripheral vascular disease, TIA, right-sided LE weakness, Balance problems, GERD, chronic diarrhea, incontinence, chronic hearing loss, depression, osteoarthritis, fatigue, hip replacement, hemicolectomy Social History - Living Situation Living arrangement: At home Living Situation: With spouse/s.o. Support System: Jhonathan been since 89, she has a son who lives nearby. 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 Ronald is overwhelmed particularly with the i ncontinence and frequent diarrhea, they do have 1 hour 3 times a week, for bathing and respite. Patient has been quite resistant to increase support. feels like he could use more, does feel like she puts it many barriers regarding this. Ronald is open to having the regional medical director, go over resources as well as work with patient except more support. Medications/Allergies - Medications Home Medications: Ambulatory Orders Medication Instructions Recorded Confirmed Escitalopram [Lexapro] 20 mg PO DAILY 08/04/21 08/12/21 Acetaminophen [Tylenol] 650 mg PO BID MDD 3000 08/05/21 08/12/21 Ipratropium [place] 1 - 2 sprays SARAH BID 08/05/21 08/12/21 Losartan Potassium 25 mg PO DAILY 08/05/21 08/12/21 Omeprazole 40 mg PO DAILY 08/05/21 08/12/21 Ondansetron [Zuplenz] 4 mg PO Q6HR PRN 08/05/21 08/12/21 dexAMETHasone [Decadron] 2 mg PO DAILY 08/05/21 08/12/21 Loperamide [Imodium] 1 - 2 mg PO BID MDD 8 mg 08/12/21 08/12/21 - Allergies Allergies/Adverse Reactions: Allergies Allergy/AdvReac Type Severity Reaction Status Date / Time aspirin Allergy Hives Verified 01/12/21 11:54 NSAIDS (Non-Steroidal Allergy Hives Verified 01/12/21 11:54 Anti-Inflamma Sulfa (Sulfonamide Allergy Unknown Verified 01/12/21 11:54 Antibiotics) Review of Systems - Constitutional Constitutional: reports: Fatigue (remains persistent;), Weakness, Poor appetite, Weight loss (baseline prior to colon cancer wt. loss 170; 07/08 127; 08/04 118; today 117 with shoes on). denies: Fever - Eyes Eyes: reports: Vision loss - Ears, Nose & Throat Ears, Nose & Throat: reports: Hearing loss, Hearing aids (not wearing), Dry mouth - Cardiovascular Cardiovascular: reports: Exertional dyspnea, Decr. exercise tolerance - Respiratory Respiratory: reports: SOB with exertion. denies: SOB at rest - Gastrointestinal Gastrointestinal: reports: Abdominal pain (intermittent), Diarrhea (2-4 times a day; triggered often by eating only slightly decrease in number over week; now nocturnal stooling regularly), Nausea (improved with scheduled ondansetron), Reflux/heartburn, Bloating, Poor appetite, Early satiety - Genitourinary Genitourinary: reports: Incontinence (no control for several years). denies: Dysuria - Musculoskeletal Musculoskeletal: reports: Muscle pain, Back pain, Muscle aches, Stiffness, Limited range of motion (right LE), Muscle weakness, Assistive devices (using walker today; able to walk 100 ft with assisted cueing and walker), Transfer issues (uses grab bars) - Integumentary Integumentary: reports: Dryness, Hair changes (thinning) - Neurological Neurological: reports: General weakness, Memory problems, Abnormal gait, I ncoordination, Other (balance issues) - Psychiatric Psychiatric: reports: Depression (worsening) - Hematologic/Lymphatic Hematologic/Lymph: reports: Anemia (10.2), Recurrent infections (recently treated with levaquin on discharge hospital) - All Other Systems All Other Systems: reports: Reviewed and negative Physical Exam - Vital Signs Temperature: 97.2 C Pulse Rate: 76 Respiratory Rate: 18 O2 Saturation: 96 Blood Pressure: 124/84 - Physical Exam General Appearance: positive: Mild distress, Cachetic Eyes Bilateral: positive: Normal inspection Neck: positive: Trachea midline Cardiovascular: positive: Regular rate & rhythm Respiratory: positive: No respiratory distress, Diminished in bases Abdomen: positive: Non-tender, Soft, Abnml bowel sounds (hyperactive). negative: Hepatomegaly, Mass, Distended Skin: positive: Pallor, Dryness Extremities: positive: No pedal edema Neurologic/Psychiatric: positive: Oriented x3, Weakness, Depressed mood/affect, Flat affect Palliative Care - POLST Patient has POLST: Yes POLST Status: DNR, Selective Treatment (completed at visit today) Pain: Pain unchanged, Location (abdominal; better with scheduled APAP but pers istent) Tiredness/Fatigue: Severe (7-10) Drowsiness/Sedation: Mild (1-3) Nausea: Mild (1-3) (improved with scheduled ondansetron) Anorexia: Severe (7-10), Weight loss Dyspnea: Mild (1-3) Depression: Moderate (4-6) Anxiety: Moderate (4-6) Feelings of wellbeing/Perceived Quality of Life: Poor, Worsening Performance Status: Patient up in chair, does appear to be doing a little bit better as far strength. Was able to get from sitting to standing and ambulate. She is total assist though secondary to balance, needing cueing for ambulation, she does end up with frequent showers secondary incontinence of stool. She is able to self feed, is not having trouble with choking. - Palliative Care Discussion: Family conference with patient, Ronald, and [id number] Priya. Patient with another pound weight loss, has a small improvement in appetite, but remains quite weak. Introduced again the conversation regarding goals of care, given patient's ongoing decline and notable failure to thrive. We did discuss hospice, as a focus on comfort, no further hospitalization, and allowing natural . She is somewhat conflicted with this, though she does perceive herself is declining, she is hoping to get better. She does not want any further work- up at this time, but would like to get stronger though in the context of getting stronger this would mean eating and drinking and pushing herself a little more. Unclear if physically this is going to be possible, Ronald himself would like the support of hospice, does see her is declining, and his perception is that she has really deteriorated over this last year. She is quite clear as far as her goals for DN AR/DNI, but at this point in time may or may not consider ret urning to the hospital if she has an acute decline or symptoms. She is quite frail, at this time most likely would not be able to tolerate any extensive surgery or testing, and would "like not to give up" quite yet. We did discuss hospice is not necessarily getting up, but focusing on priorities for being at home and with family. Patient is able to acknowledge the seriousness of her decline, she reports she just "puts it out of her mind". That she does not like to think about things like this, and has been feeling overwhelmed. We did discuss in the context that this is very important for me to understand what is most important for her, as this will guide our care and interventions. She remains quite ambivalent yet, did complete POLST with DN AR/DNI and selective treatments with the goal to focus on comfort, spending time with family, and end-of-life she would like to be at home with a comfortable respectful . She is just hoping she has some more time, or may improve in the meantime. She would like some more time to think about this, at this point she is not acutely ill, will continue to monitor patient's either improvement or decline, and revisit next week. Patient is also still been quite resistant to increased care in the home, we did have a discussion regarding Ronald is wearing out. They do have Monica who provides 1 hour 3 times a week, she was doing 7 days a week. Patient had put a "stop" to this but is willing to reconsider this again. Ronald himself would see another 4-hour respite stay would be helpful. His exhaustion mostly is around her frequent incontinence of stool, as well as needing urgent and immediate care and being 24/7. He is open to having the high school social studies teacher come and discuss further resources. He has been quite realistic and has been following through on making plans with [facility]. In separate conversation did discuss with him if patient were to take an acute event, decline, could transition to comfort measures or if he were to find her at end-of-life/did, instructions given to call 911 and present the POLST as well as information this is not an unexpected . Results - Lab Results Lab results reviewed: Yes Lab and Imaging Results: C. difficile negative. Impression and Recommendations - Palliative Care Impression: This is an 86-year-old woman who presents with failure to thrive, with weight loss, recurrent diarrhea, poor intake, weakness, depression, functional decline and worsening fatigue. Patient with known history of colon cancer, with no further staging. Recent hospitalization for small bowel obstruction, and concern for possible pouch at anastomosis site. Patient this point in time not scheduled for further follow-up, remains ambivalent regarding her goals. Patient's presents with caregiver fatigue, and both are overwhelmed by her incontinence of stool. Palliative care providing support for pain and symptom management, focusing on clarifying goals of care, and anticipatory guidance. Recommendations/Counseling Done: 1. Diarrhea. This continues to be severely problematic, now we have ruled out C. difficile, can be more aggressive in management. We will go ahead and initiate Imodium half tab with simethicone twice a day, if no improvement after 2 days, increase to full-time. Will consider adding Benefiber if remains liquid or no improvement. Patient remains ambivalent as far as further work-up, at this point time would not tolerate any testing if get stronger can revisit this. Will revisit next week, if patient improves and/or wants to move forward will need referral to surgeon for scoping/further work-up. 2. GERD. Patient continues with abdominal pain and discomfort, this is improved with increasing omeprazole back to 40 mg, as well as acetaminophen 1000 mg twice daily. 3. Anorexia. Depression continues with early satiety, anorexia, she has lost another pound to pound and a half this week. This is multifactorial, she is starting to feel little bit more hungry, with the dexamethasone 2 mg in a.m. This is initiated to assist both with appetite, nausea and fatigue. We will continue to trial as it does appear to be impacting her some. 4. Nausea. No further intermittent vomiting, scheduling her ondansetron twice a day has resolved this. Her stomach now is just "queasy" and related mostly to gas and diarrhea. 5. Weight loss. Patient has had significant weight loss, and presents with malnutrition and cachexia. She remains somewhat resistant to increasing her intake as well as's difficulty with early satiety, taste changes, and difficulty getting supplements and. Have encouraged her to increase to twice a day, have reviewed dietary recommendations, and encouraged to continue to focus on hydration. 6. History of colon cancer. Patient and patient's history has not completed staging or further follow-up with surgeon. Patient is quite frail, at this point in time she does not feel she would do anything further if she did have progression of disease. We will continue to explore if patient improves as far as further work-up. 7. Caregiver fatigue. Patient continues to be unable to care for herself worried about being a burden and is overwhelmed. Counseling provided today will increase caregiving at least an hour in the evenings, referral to [employer] to further negotiate increased help in the home. 8. Advance care planning. Patient again remains somewhat ambivalent regarding goals, would like a comfort focused approach given patient's rapid decline and seriousness of her certain situation. Counseling provided regarding hospice but goals need to be comfort focused, patient remains ambivalent would like to continue to see how she does. POLST with DN AR/DNI and selective treatments completed today. As well as continued focus on conversation regarding goals. 60 minutes with greater than 50% of this done in counseling regarding goals of care, symptom management, anticipatory guidance and coordination of care
== END 2021-08-12 13:01 | disposition home or self-care (01) ==
LOC: PC 13:00
PROVIDERS: ATTEND Nurse Practitioner Adult Health
DX: Z51.5 Encounter for palliative care (principal); R62.7 Adult failure to thrive; R19.7 Diarrhea, unspecified; K21.9 Gastro-esophageal reflux disease without esophagitis; R63.0 Anorexia; F32.9 Major depressive disorder, single episode, unspecified; R68.81 Early satiety; R11.0 Nausea; R63.4 Abnormal weight loss; C18.9 Malignant neoplasm of colon, unspecified; Z66 Do not resuscitate
CPT/HCPCS: 99350

== ENCOUNTER 2021-08-19 11:30 | Outpatient (CLI) | payer MEDICARE ==
--- NOTE | 2021-08-19 17:46 | CONSULTATION NOTE ---
Palliative Care Follow Up - Referral Referring Provider: Danyelle BRAND for Dr. Cordova Time of Visit: [id number] Referral setting: Home Referral Reason: FTT/Diarrhea/ - Information Sources Records reviewed: Previous records reviewed History/Review of Systems obtained from: Patient, Family ( Ronald present) Exam limitations: Clinical condition (STM deficits) - History of Present Illness Update Brief HPI Update: This is an 86-year-old woman has a complicated history over the last several months, extending actually to 08/16/2020 when she had surgery for colon cancer. 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 At this time she also had a TIA and most likely has been having frequent TIAs given her ongoing functional decline status with increased balance issues, worsening right-sided lower extremity weakness and mild cognitive changes. She did have a fall in September 2020 and sustained a hip fracture with repair and was followed by Katy tillman after his SNF stay. She is continue to decline functionally, mobility is impacted by weakness, muscle loss, bad balance issues of mostly bedbound and sedentary in a recliner. Most recently she has been hospitalized in June, for small bowel obstruction, UTI infection, and had a Gastrografin study that on CT scan there was a mass/abscess and was thought that this was actually a communicating with small bowel likely represented a pouch that formed and anastomosis of the bowel from her surgery a year ago. She has had ongoing incontinence of diarrhea, loose stools, without much relief. It has been significantly impacting her quality of life as well as caregiver fatigue. I did rule out C. difficile, with stool specimen on 08/13/2021. Have been slowly increasing her Imodium and trying to find a balance, patient does have intermittent gas pains, she does have left lower quadrant tenderness, but abdomen is soft. She continues to have weight loss, currently is 118, she has responded to the dexamethasone with increased appetite, is doing somewhat better with her intake. Patient continues to be somewhat ambivalent regarding her goals of care, we discussed in the context she would like to know what her underlying etiology is, but is quite adamant she would not undergo a colonoscopy. She is willing to undergo other tests, but getting her out related to her intermittent and unpredictable diarrhea is often overwhelming to both of them. I did follow-up with the surgeon's office, Dr. Almeida who saw her in the hospital, as a hospitalist surgeon. This though office is where her original surgeon was Dr. Huang, she did see her in the office on 09/18/2021 with the planned discussion regarding needing follow-up with medical oncology if desired. Patient did not follow through on this and remains again ambivalent regarding goals of care. Did agree I could discuss with surgeons office regarding what might be next steps, and follow-up recommended appointment for review of most recent scans and recognition of continued sequela from her surgery and bowel issues. This information was relayed back to patient's Ronald, he will approach her again. It has been very difficult as she is often resistant to taking medications, as well as making any definitive decisions. Past Medical History: Hypertension, peripheral vascular disease, TIA, right-sided left extremity weakness, balance issues, GERD, chronic diarrhea, incontinence, chronic hearing loss, depression, osteoarthritis, fatigue, hip replacement, hemicolectomy for colon cancer Social History - Living Situation Living arrangement: At home Living Situation: With spouse/s.o. Support System: June and Ronald been since 1990, her of alcoholism, she does have a son who lives nearby and [id number] who has been helpful. 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 Ronald is overwhelmed, particular with incontinence and frequent diarrhea, they do have 1 hour 3 times a week for bathing and respite. Patient remains quite resistant to increased support. feels like he could use more, she continues to put many barriers regarding this. Awaiting medical care evaluation specialist appointment to further explore resources and work with patient res istance. Medications/Allergies - Medications Home Medications: Ambulatory Orders Medication Instructions Recorded Confirmed Escitalopram [Lexapro] 20 mg PO DAILY 08/04/21 08/20/21 Acetaminophen [Tylenol] 650 mg PO BID MDD 3000 08/05/21 08/20/21 Ipratropium [place] 1 - 2 sprays SARAH BID 08/05/21 08/20/21 Losartan Potassium 25 mg PO DAILY 08/05/21 08/20/21 Omeprazole 40 mg PO DAILY 08/05/21 08/20/21 Ondansetron [Zuplenz] 4 mg PO Q6HR PRN 08/05/21 08/20/21 dexAMETHasone [Decadron] 2 mg PO DAILY 08/05/21 08/20/21 Loperamide [Imodium] 2 mg PO TID MDD 8 mg 08/12/21 08/20/21 Wheat Dextrin [Benefiber] 1 applic PO DAILY 08/20/21 08/20/21 - Allergies Allergies/Adverse Reactions: Allergies Allergy/AdvReac Type Severity Reaction Status Date / Time aspirin Allergy Hives Verified 01/12/21 11:54 NSAIDS (Non-Steroidal Allergy Hives Verified 01/12/21 11:54 Anti-Inflamma Sulfa (Sulfonamide Allergy Unknown Verified 01/12/21 11:54 Antibiotics) Review of Systems - Constitutional Constitutional: reports: Fatigue, Weakness, Poor appetite, Weight loss (baseline prior to colon cancer wt. loss 170; 07/08 127; 08/04 118; 08/13 117 today 117.5 with shoes on). denies: Fever - Eyes Eyes: reports: Vision loss - Ears, Nose & Throat Ears, Nose & Throat: reports: Hearing loss, Hearing aids (not wearing), Dry mouth - Cardiovascular Cardiovascular: reports: Exertional dyspnea, Decr. exercise tolerance - Respiratory Respiratory: reports: SOB with exertion. denies: SOB at rest - Gastrointestinal Gastrointestinal: reports: Abdominal pain (intermittent most localied in LLQ), Diarrhea (2-4 times a day; triggered often by eating only slightly decrease in number over week;), Nausea (improved with scheduled ondansetron; BUT one day Monday with N/V), Reflux/heartburn (controlled currently), Bloating, Poor appetite (improved intake), Early satiety - Genitourinary Genitourinary: reports: Incontinence (no control for several years). denies: Dysuria - Musculoskeletal Musculoskeletal: reports: Muscle pain, Back pain, Muscle aches, Stiffness, Limited range of motion (right LE), Muscle weakness, Assistive devices (using walker today; able to walk 100 ft with assisted cueing and walker), Transfer issues (uses grab bars) - Integumentary Integumentary: reports: Dryness, Hair changes (thinning) - Neurological Neurological: reports: General weakness (appears stronger with ambulation today), Memory problems, Abnormal gait, Incoordination, Other (balance issues) - Psychiatric Psychiatric: reports: Depression - Hematologic/Lymphatic Hematologic/Lymph: reports: Anemia (10.2), Recurrent infections (recently treated with levaquin on discharge hospital in June) - All Other Systems All Other Systems: reports: Reviewed and negative Physical Exam - Vital Signs Temperature: 97.2 C Pulse Rate: 76 Respiratory Rate: 18 O2 Saturation: 97 (ra @ rest) Blood Pressure: 122/64 - Physical Exam General Appearance: positive: Mild distress, Cachetic Eyes Bilateral: positive: Normal inspection ENT: positive: Other (complaining of broken tooth) Neck: positive: Trachea midline Cardiovascular: positive: Regular rate & rhythm Respiratory: positive: No respiratory distress, Diminished in bases Abdomen: positive: Non-tender, Soft, Abnml bowel sounds (hyperactive). negative: Hepatomegaly, Mass, Distended Skin: positive: Pallor, Dryness Extremities: positive: No pedal edema Neurologic/Psychiatric: positive: Oriented x3, Weakness, Depressed mood/affect, Flat affect Palliative Care - POLST Patient has POLST: Yes POLST Status: DNR, Selective Treatment Pain: Pain unchanged, Location (LLQ intermittent) Tiredness/Fatigue: Moderate (4-6) Drowsiness/Sedation: Mild (1-3) Nausea: Mild (1-3) (one day severe with vomiting; did not eat rest of day nor take meds until end of day) Anorexia: Moderate (4-6) (mild improvement with dexamethasone) Dyspnea: None Depression: Mild (1-3) Anxiety: Moderate (4-6) Feelings of wellbeing/Perceived Quality of Life: Poor, Worsening Sleep: Variable sleep pattern (depending on nocturnal stooling less freq with scheduled imodium) Performance Status: Patient is dependent on for all ADLs, patient can feed herself. She is a little bit stronger and getting from sitting to standing, and needs less standby assist to but still needs cueing for balance and ambulation. She has not follow through on regular ambulation, though she does report she is doing a little bit better when she is going from chair to bedroom. She does end up with frequent showers secondary to incontinence of stool, and is unable to manage her own pericare/toileting - Palliative Care Discussion: Patient continues to be ambiguous regarding goals of care. We did discuss in th e context of her wanting to know what the underlying etiology is, would need to invest some time and energy as well as consider how she might act on the outcome. Patient is very adamant does not want to have a repeat colonoscopy though suspect this may be what would give us the most information. She is very resistant to appointments, though does on the other hand wants to see what she can do to be better or find out what is going on. She most likely would not accept surgery or treatment for cancer if had progressed. is quite frustrated with her, he would be much more comfortable with just focusing on comfort and not being so much in the "twilight zone". Patient is somewhat unrealistic as far as what we are looking at for the future if continues to be resistant to any interventions, work-up, or follow-up. Impression and Recommendations - Palliative Care Impression: This is an 86-year-old woman who presents with failure to thrive, with weight loss, recurrent diarrhea, slightly improved intake with dexamethasone, mild improvement with strength this week, Patient remains ambivalent regarding her goals. Patient's presents with caregiver fatigue in both overwhelmed by her ongoing symptoms. Palliative care providing support for pain and symptom management focusing on clarifying goals of care, anticipatory guidance. Will transition to hospice depending on outcome of goals Recommendations/Counseling Done: 1. Diarrhea. This continues to be problematic, has been using Imodium half tab twice daily, did not increase as instructed. Instructed to increase Imodium to 3 times daily scheduled, add Benefiber as patient continues with watery diarrhea. Patient continues to remain ambivalent as far as work-up, did reach out to surgical office of Dr. Almeida who saw her in the hospital. They are more than willing to meet with her and go over options for further work-up. 2. GERD. Patient's abdominal pain discomfort has improved somewhat, she is taking omeprazole 40 mg in the a.m. and acetaminophen 1000 mg twice a day. Does not feel like this needs to be titrated. 3. Anorexia. This appears to have improved somewhat with dexamethasone 2 mg in the a.m. This was initiated this is both with appetite, nausea and fatigue. We will continue to trial as it does appear to be helping. Will need to titrate off at some point as this is not a long-term solution. 4. Nausea. Patient did have 1 episode on Monday of vomiting, she has had improvement though with scheduling her ondansetron twice a day. She continues though to complain of a queasy stomach mostly related to the gas and diarrhea. 5. Weight loss. Patient has had significant weight loss, has not lost any weight over this week. She continues to present with malnutrition and cachexia. She does have some resistance as far as increasing her intake secondary to early satiety, taste changes and difficulty getting supplements in. We have reviewed and written out dietary recommendations, continue to focus on hydration. 6. History of colon cancer. Patient's history in the context of follow-up with the surgeon, patient was given the opportunity to follow-up with oncology, and did not reach out back for referral. Patient remains ambivalent about her goals, continue to monitor. 7. Caregiver fatigue. Patient continues to be unable to care for herself, is overwhelmed with patient's intermittent diarrhea. GEMOLOGIST to further negotiate increased help in the home and evaluation. 8. Advanced care planning. Patient again remains ambivalent regarding goals, would like a comfort focused approach given patient's rapid decline and seriousness is of her situation. Patient is somewhat resistant to considering comfort focused only on but is unwilling to take the next step for exploring further etiology and interventions for assistance. We will continue to focus on symptoms awaiting if patient going to follow-up with surgeon or not. If patient continues to decline will transition to hospice for further support 60 minutes with greater than 50% of this done in counseling regarding symptom management, discussion exploration regarding goals, coordination of care with surgical services, and anticipatory guidance.
== END 2021-08-19 11:31 | disposition home or self-care (01) ==
LOC: PC 11:30
PROVIDERS: ATTEND Nurse Practitioner Adult Health
DX: Z51.5 Encounter for palliative care (principal); K52.9 Noninfective gastroenteritis and colitis, unspecified; R32 Unspecified urinary incontinence; R15.9 Full incontinence of feces; R26.89 Other abnormalities of gait and mobility; R53.1 Weakness; K21.9 Gastro-esophageal reflux disease without esophagitis; R53.83 Other fatigue; R62.7 Adult failure to thrive; R63.4 Abnormal weight loss; R63.0 Anorexia; R06.09 Other forms of dyspnea; R11.0 Nausea; Z85.038 Personal history of other malignant neoplasm of large intestine; R10.32 Left lower quadrant pain; Z79.899 Other long term (current) drug therapy; Z90.49 Acquired absence of other specified parts of digestive tract; Z91.81 History of falling; Z87.81 Personal history of (healed) traumatic fracture; Z74.09 Other reduced mobility; Z86.73 Personal history of transient ischemic attack (TIA), and cerebral infarction without residual deficits; Z66 Do not resuscitate
CPT/HCPCS: 99350

== ENCOUNTER 2021-09-06 11:30 | Outpatient (CLI) | payer MEDICARE ==
--- NOTE | 2021-09-06 14:51 | CONSULTATION NOTE ---
Palliative Care Follow Up - Referral Referring Provider: Danyelle BRAND (primary Dr. Cordova) Time of Visit: [id number] Referral setting: Home Referral Reason: Abdominal Mass/SBO/Protien Calorie Malnutrition/FTT - Information Sources Records reviewed: Previous records reviewed History/Review of Systems obtained from: Patient, Family ( Ronald; SANDY Powers) Exam limitations: Clinical condition (patient with mild STM deficits) - History of Present Illness Update Brief HPI Update: This is an 86-year-old woman who has had a complicated history over the last several months, extending actually from 08/16/2020 when she had surgery for her colon cancer. 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 At this time she also had a TIA, and most likely has been having frequent TIAs given her ongoing functional decline status and increased balance issues, worsening right-sided lower extremity weakness and mild cognitive changes. She had a follow-up fall in September 2020 and sustained a hip fracture with repair and was followed by [facility] after a SNF stay. Most recently she was hospitalized in June for small bowel obstruction, UTI infection, and had a Gastrografin study that showed a mass/abscess that was thought to actually be communicating with the small bowel likely to represent a pouch that formed with anastomosis of the bowel from her surgery a year ago. She was to have follow-up regarding this, she originally had no follow-up as far as after her colon cancer surgery due to both Covid and also patient's reluctance to reenter the healthcare system. They have not had an oncology consult though she does have high risk disease. She was discharged from the hospital, continued to have liquid stool, had completed her antibiotics, but continued with weight loss, weakness, and failure to thrive. She remained ambivalent regarding her goals of care, we had discussed transitioning to hospice given she did not want to return to the hospital nor have further testing but wanted to give herself a chance to see if she improved. We did rule out C. difficile, tried some intermittent ondansetron, trialed some scheduled Imodium, without any improvement. Patient continued with early satiety, intermittent vomiting, and poor intake. She her appetite did improved on some dexamethasone 2 mg, but this was short-lived. Last week she started having vomiting again, and after much discussion given patient was unable to decide whether she wanted comfort care versus intervention, she was taken [facility]. She did have a CT scan of the abdomen with pelvis done there, again it showed a small bowel obstruction, proximal loops were dilated as much as 5.21 cm. They did find again for a possible necrotic possibly infected neoplasm, but did not seem to be related to the bowel obstruction. It had increased in size from February 2021, and increased in size from June 2021, with it now measuring approximately 6.9 x 4.2 cm. She did have a Gastrografin study done again, had b een passing some stool, but still was doing quite poorly. The plan had been a colonoscopy today, and possible follow-up with exploratory laparoscopy on Monday. Though this is not documented in the records, according to he did speak with the surgeon, after much discussion given patient's frailty, and likelihood of having a poor outcome are worsening sequela from surgery, patient did not want to have a colonoscopy and decision was made to take her home. In the context of this, patient is still having some vomiting this morning, very poor intake, has not had food for over a week, just fluid support and sips of fluid. She is quite weak, pale, had to pick her up and put her on the toilet this am. This is difficult for both of them. She does present with tachycardia 116, blood pressure slightly elevated 152/58. She does have some right lower quadrant tenderness on palpation, though her abdomen is flat, and bowel tones are decreased throughout. reports they do get quite "gurgly" right before she throws up. Her last vomiting episode was this morning at 3 AM. was a upset with the whole interaction with the surgical team, unfortunately they documented that she was signed out AMA. Though I expect that conversation was with the hospitalist for discharge. Patient does not want to have surgery, is aware of pending hospice admit. Discussion regarding likely prognosis of days to weeks particularly with decreased intake. Patient at this point in time presents with minimal pain, but is quite weak and bedbound. Past Medical History: Hypertension, peripheral vascular disease, TIA, right sided left extremity weakness, balance issues, GERD, chronic diarrhea, incontinence, chronic hearing loss, depression, osteoarthritis, fatigue, hip replacement, hemicolectomy for colon cancer. Social History - Living Situation Living arrangement: At home Living Situation: With spouse/s.o. Support System: June and Ronald been since 1990, her first of alcoholism, she does have a son who lives nearby and Priya her [id number] is present for the visit. 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 They do have a paid caregiver that comes 1 hour few nights a week named Monica. Patient is originally from [place], but Ronald has been doing a full 19/06 caregiving piece. Patient has been incontinent of both stool and urine for several months. Patient has 1 son Yoni, who is still working. His Priya has helped before with caregiving, she works as well. But she is here and plans to be at hospice admit too. Medications/Allergies - Medications Home Medications: Ambulatory Orders Medication Instructions Recorded Confirmed Acetaminophen [Tylenol] 650 mg PO BID MDD 3000 08/05/21 09/06/21 Ipratropium [place] 1 - 2 sprays SARAH BID PRN 08/05/21 09/06/21 Omeprazole 40 mg PO DAILY 08/05/21 09/06/21 Ondansetron [Zuplenz] 4 mg PO Q6HR PRN 08/05/21 09/06/21 Haloperidol Oral Soln [Haldol Oral 1 mg PO Q4HR PRN 09/06/21 09/06/21 Soln] Morphine Oral Soln [Roxanol] 2.5 mg PO .Q2 PRN 09/06/21 09/06/21 - Allergies Allergies/Adverse Reactions: Allergies Allergy/AdvReac Type Severity Reaction Status Date / Time aspirin Allergy Hives Verified 01/12/21 11:54 NSAIDS (Non-Steroidal Allergy Hives Verified 01/12/21 11:54 Anti-Inflamma Sulfa (Sulfonamide Allergy Unknown Verified 01/12/21 11:54 Antibiotics) Review of Systems - Constitutional Constitutional: reports: Fatigue (worsening), Weakness (bedbound; needed to be carried to toilet today), Poor appetite (no substantive intake for over a week; taking sips of fluid), Weight loss (baseline prior to colon cancer wt. loss 170; 07/08 127; 08/04 118; 08/13 117 today 117.5 with shoes on 18.8 BMI at hospital). denies: Fever - Eyes Eyes: reports: Vision loss - Ears, Nose & Throat Ears, Nose & Throat: reports: Hearing loss, Hearing aids (not wearing), Dry mouth - Cardiovascular Cardiovascular: reports: Lightheadedness, Exertional dyspnea, Decr. exercise tolerance - Respiratory Respiratory: reports: SOB with exertion. denies: Cough, SOB at rest - Gastrointestinal Gastrointestinal: reports: Abdominal pain (intermittent most localied in LLQ), Diarrhea (decreased output; incontent; dark liquid this am in toilet), Nausea (reports worse with heartburn), Vomiting (vomited this am), Reflux/heartburn (controlled currently), Bloating, Poor appetite (improved intake) - Genitourinary Genitourinary: reports: Incontinence (no control for several years). denies: Dysuria - Musculoskeletal Musculoskeletal: reports: Muscle pain, Back pain, Muscle aches, Stiffness, Limited range of motion (right LE), Muscle weakness, Transfer issues (has wheelchair there if needed) - Integumentary Integumentary: reports: Dryness, Hair changes (thinning) - Neurological Neurological: reports: General weakness (appears stronger with ambulation today), Memory problems, Abnormal gait, Incoordination, Other (balance issues) - Psychiatric Psychiatric: reports: Depression, Anxiety - Hematologic/Lymphatic Hematologic/Lymph: reports: Anemia (9.0), Recurrent infections (recently treated with levaquin on discharge hospital in June) - All Other Systems All Other Systems: reports: Reviewed and negative Physical Exam - Vital Signs Temperature: 97.3 C Pulse Rate: 116 Respiratory Rate: 18 O2 Saturation: 92 Blood Pressure: 152/58 - Physical Exam General Appearance: positive: No acute distress, Alert, Cachetic Eyes Bilateral: positive: Normal inspection ENT: positive: Dry mucous membranes Neck: positive: Trachea midline Cardiovascular: positive: Tachycardia Respiratory: positive: No respiratory distress, Diminished in bases Abdomen: positive: Soft, Abnml bowel sounds, Tenderness (RLQ). negative: Hepatomegaly, Mass, Distended Skin: positive: Pallor, Dryness Extremities: positive: No pedal edema Neurologic/Psychiatric: positive: Disoriented to time, Weakness, Depressed mood/affect, Flat affect Palliative Care - POLST Patient has POLST: Yes POLST Status: DNR, Comfort Measures (transitioned; new POLST done with Comfort Measures) Pain: Pain unchanged, Location (RLQ), Comment (has been responsive to APAP) Feelings of wellbeing/Perceived Quality of Life: Poor, Worsening Sleep: Variable sleep pattern Performance Status: Patient has had decline in functional status, reports was mostly bedbound during hospital stay, had been up in the chair yesterday. Patient has been in bed, they did try to transition to the bathroom to clean her up, but he had to lift and carry her. Recommended patient stay in bed, consider bed baths only, does have wheelchair for transfers. - Palliative Care Discussion: Met with first and SANDY Powers, I discussed hospitalization and stay. Patient had made it very difficult in the context of trying to discuss goals and how best to proceed with surgical team. Given patient's frailty, patient would need to undergo a colonoscopy, and possible exploratory lap. Concerns for patient's having worsening status, or even being able to survive the procedure or surgery was expressed by , and per both patient and had discussed concerns with surgeons. Patient had verbalized did not want to have another colonoscopy or intervention, they did decide to go home. In the context of this, this decision would then transition patient to comfort focus care. feels like patient in a better place at home. He reports that she is quite [place], always presents as a woman who has a stiff upper lip, reports she does not like to think about it, nor talk much about it.His goal though is for her to be comfortable, have a good , and is aware that prognosis is most likely days to weeks. Met with patient separately, to evaluate patient's understanding of current status. She does understand they had wanted to do surgery, and very worried that she may not be able to survive it or make things worse. We did discuss in the context of this, as best we know her cancer most likely returned or her complications in her abdomen as a result of her previous surgery are going to add to her continuing decline and demise. We did discuss in the context of her current status, this would be a good time to say goodbye to friends and family, the hospice team will provide focus on comfort and supporting Ronald particularly with her caregiving. She does wonder/worry about Ronald being able to continue to manage with her increasing care needs. She is wondering what she can eat, we discussed the focus was on quality of life, she can have sips of what ever she wants, but may still have vomiting as her bowel obstruction appears to be intermittent. Results - Lab Results Lab results reviewed: Yes Impression and Recommendations - Palliative Care Impression: This is an 86-year-old woman who presents a second time with increased abdominal mass/abscess noted to be an infected neoplasm most likely and is located at the anastomosis site of previous cancer surgery. Patient also presents with intermittent small bowel obstruction, with noted vomiting this a.m. Patient continues to lose weight, appears quite frail, early satiety, intermittent abdominal discomfort, and functional decline. Patient was recently hospitalized and discharged yesterday, had declined further surgical work-up or intervention. Given goals are not to return to the hospital, will go ahead and transition to hospice. Palliative care providing support and definition of goals of care, with coordination and transition to hospice this afternoon. Recommendations/Counseling Done: 1. Abdominal mass/SBO. Given patient's continued failure to thrive, poor intake, early satiety, and functional decline. Clinical impression is most likely recurrent cancer, or sequela/complications from anastomosis. No further work-up or exploration planned, will discharge to hospice care with the goal for comfort. Comfort medications, including morphine ordered for discomfort. 2. Anorexia. Patient continues with intermittent obstructive symptoms, is taking sips of water, counseling provided can eat for comfort, recognizing may vomit up intake. Patient very much wants some vanilla ice cream, taking sips of water. Does have ondansetron available, and Haldol for nausea is being ordered. Patient does identify when having increased heartburn symptoms, does result in vomiting. Patient does have omeprazole, encouraged to continue if able. 3. Depression. Patient has been off her Lexapro, given patient does not want to take any pills, will leave her off of this. Patient is quite private, particularly distressed when pushed regarding feelings are discussion around dying. 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 She does recognize that she is at end-of-life, and accepting of hospice transition. 4. Advanced care planning. POLST is updated with DN AR from selective treatments to comfort measures. This is signed by , and posted on refrigerator. Counseling provided regarding hospice transition, hospice team, will continue to need some mcc and caregiving support. Has been does present with caregiver fatigue, they have made arrangements with [facility]. They are looking at letting friends and family know, to be able to come and say their goodbyes. 60 minutes with greater than 50% of this done in counseling regarding goals of care, symptom management, coordination of care with hospice team and anticipatory guidance
== END 2021-09-06 11:31 | disposition home or self-care (01) ==
LOC: PC 11:30
PROVIDERS: ATTEND Nurse Practitioner Adult Health
DX: Z51.5 Encounter for palliative care (principal); K56.609 Unspecified intestinal obstruction, unspecified as to partial versus complete obstruction; C18.0 Malignant neoplasm of cecum; C18.3 Malignant neoplasm of hepatic flexure; R62.7 Adult failure to thrive; R19.00 Intra-abdominal and pelvic swelling, mass and lump, unspecified site; E46 Unspecified protein-calorie malnutrition; K52.9 Noninfective gastroenteritis and colitis, unspecified; R32 Unspecified urinary incontinence; R26.2 Difficulty in walking, not elsewhere classified; F32.9 Major depressive disorder, single episode, unspecified; H91.90 Unspecified hearing loss, unspecified ear; R15.9 Full incontinence of feces; Z66 Do not resuscitate; Z79.899 Other long term (current) drug therapy; Z90.49 Acquired absence of other specified parts of digestive tract; Z86.73 Personal history of transient ischemic attack (TIA), and cerebral infarction without residual deficits; R63.0 Anorexia
CPT/HCPCS: 99350